=== PATIENT | male | born 1965 ===

== ENCOUNTER 2017-12-17 15:35 | Emergency (ER) | payer BC ==
--- NOTE | 2017-12-17 16:27 | C.PDOC ---
History Of Present Illness 52-year-old male, presents to the emergency department with complaints of left- lower quadrant abdominal pain that started last night. Patient notes pain is localized and constant in nature, and worsens when he stands up. Associated symptoms include subjective fever. Patient stated he took a pain reliever at home with minimal relief, and [employer] today while at work. Denies nausea/vomiting , fevers, chills, symptoms, change in bowel habits, or any other associated symptoms. No other complaints at this time. Of note, patient with a Hx of diverticulitis 2-3 years ago. Time Seen by Provider: 12/17/17 16:23 Chief Complaint (Nursing): Abdominal Pain Past Medical History Reviewed: Historical Data, Nursing Documentation, Vital Signs Vital Signs: Last Vital Signs Temp 99.3 F 12/17/17 21:30 Pulse 90 12/17/17 21:30 Resp 18 12/17/17 21:30 BP 156/92 H 12/17/17 21:30 Pulse Ox 100 12/17/17 21:54 - Medical History PMH: Diverticulitis, HTN Family History: States: No Known Family Hx - Social History Hx Alcohol Use: No Hx Substance Use: No - Immunization History Hx Tetanus Toxoid Vaccination: No Hx Influenza Vaccination: No Hx Pneumococcal Vaccination: No Review Of Systems Except As Marked, All Systems Reviewed And Found Negative. Constitutional: Negative for: Fever, Chills Cardiovascular: Negative for: Chest Pain Respiratory: Negative for: Shortness of Breath Gastrointestinal: Positive for: Abdominal Pain. Negative for: Nausea, Vomiting , Diarrhea Genitourinary: Negative for: Dysuria, Scrotal Pain Musculoskeletal: Negative for: Back Pain Skin: Negative for: Rash Neurological: Negative for: Weakness, Numbness Physical Exam - Physical Exam Appears: Non-toxic, No Acute Distress Skin: Warm, Dry, No Rash Eye(s): bilateral: Normal Inspection, PERRL Nose: Normal Oral Mucosa: Moist Lips: Normal Appearing Neck: Normal ROM Cardiovascular: Rhythm Regular, No Murmur Respiratory: Normal Breath Sounds, No Accessory Muscle Use Gastrointestinal/Abdominal: Soft, Tenderness (Mild, LLQ), No Guarding, No Rebound Extremity: Normal ROM Neurological/Psych: Oriented x3, Normal Speech ED Course And Treatment - Laboratory Results Result Diagrams: 12/17/17 17:12 12/17/17 17:12 O2 Sat by Pulse Oximetry: 100 (on RA) Pulse Ox Interpretation: Normal - CT Scan/US CT ABD/PEL Other Rad Studies (CT/US): Read By Radiologist, Radiology Report Reviewed CT/US Interpretation: Accession No. : [id number]. Patient Name / ID : ALBERT ALONZO / [id number]. Exam Date : 12/17/2017 18:36:57 ( Approved ). Study Comment : Sex / Age : M / 52Y. Creator : Holger Guevara MD. Dictator : Machine Tool Technician Instructor : Arborist Representative : Holger Guevara MD. Approver2 : Report Date : 12/17/2017 20:00:00. My Comment : . [facility] Division of Radiology. [address] [place] [address]. Tel. no. . . . Patient Name: CHERI PRICE . Pt. Address: [address] [place] [address] Rec #: [id number]. [place] [address]: Sumaya DO, Tico Gomes Pt Order Location: [facility] : 1965 Male Age: 52 Order #: [id number]. Accession # : [id number]. Reason for exam: abdominal pain. . . . . . CT Scan. . . ABD PELVIS IV CONTRAST ONLY Exam Date: 12/17. . This imaging exam was performed at [facility]. EXAM: CT Abdomen and Pelvis With Intravenous Contrast. . CLINICAL HISTORY: 52 years old, male ; Pain; Abdominal pain; Localized; Left lower quadrant (llq). . TECHNIQUE: Axial computed tomography images of the abdomen and pelvis with intravenous. contrast. All CT scans at this facility use one or more dose reduction. techniques, viz.: automated exposure control; ma/kV adjustment per patient size. (including targeted exams where dose is matched to indication; i.e. head) ; or. iterative reconstruction technique. Coronal and sagittal reformatted images were created and reviewed. . CONTRAST: 100 mL of visipaque 320 administered intravenously. . COMPARISON: No relevant prior studies available. . FINDINGS: Lower thorax: Minimal atelectasis/scarring. . ABDOMEN: Liver: Fatty infiltration. Gallbladder and bile ducts: No calcified stones. No ductal dilation. Pancreas: No ductal dilation. No mass. Spleen: No splenomegaly. Adrenals: No mass. Kidneys and ureters: Several renal calculi. No hydronephrosis. Stomach and bowel: Scattered diverticula within colon. Moderate mural. thickening short segment of distal descending/proximal sigmoid colon. Mild. stranding within adjacent fat. No obstruction. Appendix: Normal caliber. No inflammation. . PELVIS: Bladder : Unremarkable. Reproductive: Unremarkable as visualized. . ABDOMEN and PELVIS: Intraperitoneal space: No significant fluid collection. No free air. Bones/joints: Degenerative changes of lower lumbar spine. No acute fracture. Soft tissues: Small umbilical hernia containing fat. Vasculature: Minimal atherosclerotic disease. No aneurysm. Lymph nodes: No pathologically enlarged lymph nodes. . IMPRESSION: 1. Findings compatible with acute diverticulitis. Recommend endoscopy. following resolution. 2. Incidental/non -acute findings are described above. . Dictated By: Holger Guevara MD. Dictated Date/Time: 12/17/171999. Signed By: Holger Guevara MD. Date Signed : 12/17/171999. Transcribed By: [facility]. Transcribe Date/Time: 12/17/171999. ACYP02/MT Medical Decision Making Medical Decision Makin pt resting quietly, no distress. he is able to tolerate po and is comfortable w dc and po abx at home. pmd f/u and will return if worse. Disposition - Disposition Disposition: HOME/ ROUTINE Disposition Time: 21:54 Condition: STABLE Forms: [facility] (French) - Clinical Impression Clinical Impression: Diverticulitis - Scribe Statement The provider has reviewed the documentation as recorded by the Scribe (Buck Rocha) All medical record entries made by the Scribe were at my direction and personally dictated by me. I have reviewed the chart and agree that the record accurately reflects my personal performance of the history, physical exam, medical decision making, and the department course for this patient. I have also personally directed, reviewed, and agree with the discharge instructions and disposition.
[2017-12-17] MEDS ORDERED: Sodium Chloride 0.9% 1,000 ML IV ONE ×2 (16:38→20:03)
[2017-12-17] MEDS ORDERED: Sodium Chloride 0.9% 1,000 ML ONE ×2 (16:49→20:32)
[2017-12-17 17:21] LABS: BASO # 0.2 K/uL (0.0-0.2); BASO % 1.2 % (0.0-2.0); EOS # 0.1 K/uL (0.0-0.7); EOS % 0.7 % (0.0-4.0); LYMPH # 1.8 K/uL (1.0-4.3); LYMPH % 14.1 % (20.0-40.0); MEAN CELL VOLUME 86.7 fL (80.0-94.0); MEAN CORPUSCULAR HEMOGLOBIN 28.8 pg (27.0-31.0); MEAN CORPUSCULAR HGB CONC 33.2 g/dL (33.0-37.0); MEAN PLATELET VOLUME 7.8 fL (7.2-11.7); MONO # 1.1 K/uL (0.0-0.8); MONO % 8.4 % (0.0-10.0); NEUT # 9.8 K/uL (1.8-7.0); NEUT % 75.6 % (50.0-75.0); NRBC % 0.1 % (0.0-2.0); RBC 5.56 Mil/uL (4.40-5.90); RED CELL DISTRIBUTION WIDTH 14.7 % (11.5-14.5); WHITE BLOOD COUNT 12.9 K/uL (4.8-10.8)
[2017-12-17 17:27] LABS: ALB/GLOB RATIO 1.1 (1.0-2.1); ALBUMIN 4.3 g/dL (3.5-5.0); ALT/SGPT 42 U/L (21-72); AST/SGOT 23 U/L (17-59); BLOOD UREA NITROGEN 14 mg/dL (9-20); CALCIUM 9.2 mg/dl (8.6-10.4); GFR AFRICAN-AMERICAN > 60; GFR NON-AFRICAN AMERICAN > 60; URINE BILIRUBIN NEGATIVE (NEGATIVE); URINE BLOOD 1+ (NEGATIVE); URINE CLARITY Clear (Clear); URINE COLOR Yellow (YELLOW); URINE GLUCOSE (UA) NORMAL (Normal); URINE LEUKOCYTE ESTERASE NEG Leu/uL (Negative); URINE NITRATE NEGATIVE (NEGATIVE); URINE PROTEIN NEGATIVE (NEGATIVE)
[2017-12-17] MEDS ORDERED: Iodixanol 320 mg/ml 150 ml Bottle IV ONE (18:01)
--- NOTE | 2017-12-17 20:00 | CT ---
EXAM: CT Abdomen and Pelvis With Intravenous Contrast CLINICAL HISTORY: 52 years old, male; Pain; Abdominal pain; Localized; Left lower quadrant (llq) TECHNIQUE: Axial computed tomography images of the abdomen and pelvis with intravenous contrast. All CT scans at this facility use one or more dose reduction techniques, viz.: automated exposure control; ma/kV adjustment per patient size (including targeted exams where dose is matched to indication; i.e. head); or iterative reconstruction technique. Coronal and sagittal reformatted images were created and reviewed. CONTRAST: 100 mL of visipaque 320 administered intravenously. COMPARISON: No relevant prior studies available. FINDINGS: Lower thorax: Minimal atelectasis/scarring. ABDOMEN: Liver: Fatty infiltration. Gallbladder and bile ducts: No calcified stones. No ductal dilation. Pancreas: No ductal dilation. No mass. Spleen: No splenomegaly. Adrenals: No mass. Kidneys and ureters: Several renal calculi. No hydronephrosis. Stomach and bowel: Scattered diverticula within colon. Moderate mural thickening short segment of distal descending/proximal sigmoid colon. Mild stranding within adjacent fat. No obstruction. Appendix: Normal caliber. No inflammation. PELVIS: Bladder: Unremarkable. Reproductive: Unremarkable as visualized. ABDOMEN and PELVIS: Intraperitoneal space: No significant fluid collection. No free air. Bones/joints: Degenerative changes of lower lumbar spine. No acute fracture. Soft tissues: Small umbilical hernia containing fat. Vasculature: Minimal atherosclerotic disease. No aneurysm. Lymph nodes: No pathologically enlarged lymph nodes. IMPRESSION: 1. Findings compatible with acute diverticulitis. Recommend endoscopy following resolution. 2. Incidental/non-acute findings are described above.
[2017-12-17] MEDS ORDERED: Ciprofloxacin 400mg/200ml D5W 400 MG/200 ML BAG IVPB STA (20:03)
[2017-12-17] MEDS ORDERED: metroNIDAZOLE IV 500 mg/100 ml 500 MG/100 ML BAG IVPB STA (20:03)
[2017-12-17 21:30] VITALS: RESP 18
[2017-12-17 22:52] VITALS: BP 144/89; PULSE 85; TEMP 99.4; O2SAT 98
== END 2017-12-17 23:05 | disposition home or self-care (01) ==
LOC: C.ER 15:35
DX: K57.92 Diverticulitis of intestine, part unspecified, without perforation or abscess without bleeding (principal)
CPT/HCPCS: 74177; 80053; 81001; 85025; 96361; 96365; 96367; 96375; 99285; J0744; J1885; J7040; Q9967